=== PATIENT | female | born 1950 | race African-American/Black ===

== ENCOUNTER 2018-07-01 10:54 | Inpatient (IN) | payer MEDICARE, MEDICAID ==
[2018-07-01] VITALS (26 sets, daily range): BP systolic 80–107; BP diastolic 29–84
[~2018-07-01] VITALS: Ht 170.2 cm; Wt 83.6 kg
[2018-07-01] MEDS ORDERED: PROP80CA43 PO (11:00)
[2018-07-01] MEDS ORDERED: SODIUM CHLORIDE 0.9% 1,000 ML IV NR (11:30)
[2018-07-01] MEDS ORDERED: ASPIRIN 81MG TABLET PO NR (11:30)
[2018-07-01] MEDS ORDERED: ATROPINE SULFATE 1MG/ML VIAL IV ONE (11:45)
[2018-07-01] MEDS ORDERED: ATROPINE SULFATE 1MG/10ML SYR IV ONE (12:00)
[2018-07-01 12:12] LABS: BASOPHILS % 0.3 % (0.0-2.0); EOSINOPHILS % 1.3 % (0.0-5.0); HEMATOCRIT. 38.3 % (36.0-48.0); HEMOGLOBIN. 12.4 g/dL (12.0-16.0); LYMPHOCYTES % 19.1 % (20.0-50.0); MEAN CORPUSCULAR HEMOGLOBIN 29.5 pg (28.0-32.0); MEAN CORPUSCULAR VOLUME 90.8 fL (81.0-99.0); MEAN PLATELET VOLUME 10.4 fl (7.4-10.4); MONOCYTES % 5.9 % (2.0-8.0); NEUTROPHILS % 73.4 % (40.0-76.0); PLATELET 165 x1000/uL (130-400); RED BLOOD CELL COUNT 4.21 mill/uL (4.2-5.4); RED CELL DISTRIBUTION WIDTH 15.2 % (11.6-14.6)
[2018-07-01] MEDS ORDERED: DOPAMINE 800MG PREMIX (DOUBLE) 250 ML IV ONE (12:15)
[2018-07-01 12:18] LABS: CHLORIDE 104 mEq/L (98-107)
[2018-07-01] MEDS ORDERED: DOPAMINE 400MG/250ML PREMIX 250 ML IV ONE ×3 (12:30→18:44)
[2018-07-01] MEDS ORDERED: GLUCAGON,HUMAN RECOMBINANT 1MG/VIAL IV ONE (12:30)
[2018-07-01] MEDS ORDERED: GUAIFENESIN 200MG/10ML SUGAR FREE UDC PO PRN (14:00)
[2018-07-01] MEDS ORDERED: ACETAMINOPHEN 325MG TABLET PO PRN (14:00)
[2018-07-01] MEDS ORDERED: NA PHOS,M-B/NA PHOS,DI-BA ENEMA 118ML PR PRN (14:00)
[2018-07-01] MEDS ORDERED: DOCUSATE SODIUM 100MG CAPSULE PO PRN (14:00)
[2018-07-01] MEDS ORDERED: ONDANSETRON HCL 4MG/2ML INJ IV PRN (14:00)
[2018-07-01] MEDS ORDERED: HYDROCODONE/ACETAMINOPHEN 5/325MG TABLET PO PRN (14:00)
[2018-07-01] MEDS ORDERED: LORAZEPAM 2MG/ML CPJ IV NR (16:45)
[2018-07-01] MEDS: SODIUM CHLORIDE 0.45% 1,000 ML IV SCH (17:34)
[2018-07-01] MEDS ORDERED: ENOXAPARIN 40MG/0.4ML SYR SUBCUT SCH (18:00)
[2018-07-01 18:41] LABS: CREATINE KINASE 94 IU/L (26-192)
[2018-07-01 18:43] LABS: CREATINE KINASE MB FRACTION 9.8 ng/mL (0.5-3.6)
[2018-07-01] MEDS: DOPAMINE 400MG/250ML PREMIX 250 ML IV PRN ×2 (19:38→23:42)
[2018-07-02] VITALS (101 sets, daily range): BP systolic 67–169; BP diastolic 28–120
[2018-07-02 00:46] LABS: CREATINE KINASE 67 IU/L (26-192)
[2018-07-02 05:36] LABS: BASOPHILS % 0.2 % (0.0-2.0); EOSINOPHILS % 0.4 % (0.0-5.0); HEMATOCRIT. 39.2 % (36.0-48.0); HEMOGLOBIN. 13.2 g/dL (12.0-16.0); MEAN CORPUSCULAR HEMOGLOBIN 30.2 pg (28.0-32.0); MEAN CORPUSCULAR VOLUME 89.9 fL (81.0-99.0); MEAN PLATELET VOLUME 10.4 fl (7.4-10.4); MONOCYTES % 6.4 % (2.0-8.0); PLATELET 156 x1000/uL (130-400); RED BLOOD CELL COUNT 4.36 mill/uL (4.2-5.4)
[2018-07-02 05:40] LABS: CHLORIDE 105 mEq/L (98-107)
[2018-07-02 05:50] LABS: HDL CHOLESTEROL 49 mg/dL (40-59); LDL CHOLESTEROL 114 mg/dL (5-100); T4 FREE 0.94 ng/dL (0.76-1.46)
[2018-07-02] MEDS: DOPAMINE 400MG/250ML PREMIX 250 ML IV PRN ×2 (07:57→18:05)
[2018-07-02] MEDS: SODIUM CHLORIDE 0.45% 1,000 ML IV SCH ×2 (09:27→23:18)
[2018-07-02] MEDS: MIDODRINE HCL 2.5MG TABLET PO SCH ×2 (13:00→13:36)
[2018-07-02 13:21] LABS: CLARITY URINE CLEAR (CLEAR); COLOR URINE YELLOW (YELLOW); KETONES URINE NEGATIVE (NEGATIVE); LEUKOCYTE ESTERASE URINE NEGATIVE (NEGATIVE); NITRITE URINE NEGATIVE (NEGATIVE); OCCULT BLOOD URINE TRACE (NEGATIVE); PROTEIN URINE NEGATIVE (NEGATIVE); SPECIFIC GRAVITY URINE 1.004 (1.005-1.030); UROBILINOGEN URINE 0.2 E.U./dL (0.2-1.0)
[2018-07-02] MEDS ORDERED: ASPIRIN 81MG EC TABLET PO NR (15:00)
[2018-07-02] MEDS ORDERED: ENOXAPARIN 30MG/0.3ML SYR SUBCUT SCH (18:00)
[2018-07-02] MEDS: MIDODRINE HCL 5MG TABLET PO SCH (18:07)
[2018-07-02] MEDS: ATORVASTATIN CALCIUM 10MG TABLET PO SCH (20:20)
[2018-07-02] MEDS ORDERED: ENOXAPARIN 40MG/0.4ML SYR SUBCUT SCH (21:00)
[2018-07-02] MEDS: ZOLPIDEM TARTRATE 5MG TABLET PO PRN (23:01)
[2018-07-03] VITALS (38 sets, daily range): BP systolic 84–105; BP diastolic 49–75
[2018-07-03 05:01] LABS: BASOPHILS % 0.4 % (0.0-2.0); EOSINOPHILS % 0.8 % (0.0-5.0); HEMATOCRIT. 34.3 % (36.0-48.0); HEMOGLOBIN. 11.3 g/dL (12.0-16.0); LYMPHOCYTES % 15.7 % (20.0-50.0); MEAN CORPUSCULAR HEMOGLOBIN 29.8 pg (28.0-32.0); MEAN CORPUSCULAR VOLUME 90.2 fL (81.0-99.0); MONOCYTES % 6.8 % (2.0-8.0); NEUTROPHILS % 76.3 % (40.0-76.0); PLATELET 109 x1000/uL (130-400); RED CELL DISTRIBUTION WIDTH 15.5 % (11.6-14.6)
[2018-07-03 05:07] LABS: CHLORIDE 108 mEq/L (98-107)
[2018-07-03] MEDS: ASPIRIN 81MG EC TABLET PO SCH (08:58)
[2018-07-03] MEDS: MIDODRINE HCL 5MG TABLET PO SCH ×3 (08:58→17:20)
[2018-07-03] MEDS ORDERED: POTASSIUM CHLORIDE 20MEQ TABLET SR PO NR (09:20)
[2018-07-03] MEDS ORDERED: INFLUENZA VIRUS VACCINE(AFLURIA) 0.5ML SYR IM ONE (20:00)
[2018-07-03] MEDS: SODIUM CHLORIDE 0.45% 1,000 ML IV SCH (20:10)
[2018-07-03] MEDS: ATORVASTATIN CALCIUM 10MG TABLET PO SCH (20:29)
[2018-07-03] MEDS ORDERED: ENOXAPARIN 30MG/0.3ML SYR SUBCUT SCH (21:00)
[2018-07-03] MEDS: ZOLPIDEM TARTRATE 5MG TABLET PO PRN (23:21)
[2018-07-04] VITALS: BP 104/71
[2018-07-04 04:00] VITALS: BP 121/80
[2018-07-04 07:33] LABS: BASOPHILS % 0.3 % (0.0-2.0); EOSINOPHILS % 1.1 % (0.0-5.0); HEMATOCRIT. 32.5 % (36.0-48.0); HEMOGLOBIN. 10.9 g/dL (12.0-16.0); LYMPHOCYTES % 23.8 % (20.0-50.0); MEAN CORPUSCULAR HEMOGLOBIN 30.2 pg (28.0-32.0); MEAN CORPUSCULAR VOLUME 90.2 fL (81.0-99.0); MONOCYTES % 8.2 % (2.0-8.0); NEUTROPHILS % 66.6 % (40.0-76.0); PLATELET 89 x1000/uL (130-400); RED BLOOD CELL COUNT 3.61 mill/uL (4.2-5.4); RED CELL DISTRIBUTION WIDTH 15.2 % (11.6-14.6)
[2018-07-04 08:00] VITALS: BP 128/82
[2018-07-04] MEDS: MIDODRINE HCL 5MG TABLET PO SCH (08:29)
[2018-07-04] MEDS: ASPIRIN 81MG EC TABLET PO SCH (08:29)
[2018-07-04] MEDS: SODIUM CHLORIDE 0.45% 1,000 ML IV SCH (08:31)
[2018-07-04] MEDS ORDERED: MAGNESIUM OXIDE 400MG TABLET PO SCH (09:45)
[2018-07-04] MEDS ORDERED: POTASSIUM CHLORIDE 20MEQ TABLET SR PO NR (09:45)
[2018-07-04 12:00] VITALS: BP 137/73
[2018-07-04 12:12] VITALS: BP 137/73
== END 2018-07-04 12:59 | disposition home health service (06) | DRG 683 ==
LOC: ER 11:51 → CVICU 13:54 → EDBEDREQSVC 13:57 → EDBEDREQTM 13:57 → EDBEDREQ 13:57 → ENRESERV 14:31 → 6WST 07-03 15:30
PROVIDERS: ADMIT Hospitalist; ATTEND Hospitalist
PROC: 06HY33Z Insertion of Infusion Device into Lower Vein, Percutaneous Approach (ICD-10-PCS; principal; 2018-07-03)
PROC: B54BZZA Ultrasonography of Right Lower Extremity Veins, Guidance (ICD-10-PCS; 2018-07-03)
DX: N17.9 Acute kidney failure, unspecified (principal); I69.351 Hemiplegia and hemiparesis following cerebral infarction affecting right dominant side; J44.9 Chronic obstructive pulmonary disease, unspecified; I44.0 Atrioventricular block, first degree; G47.00 Insomnia, unspecified; I95.9 Hypotension, unspecified; E03.9 Hypothyroidism, unspecified; E83.42 Hypomagnesemia; I07.1 Rheumatic tricuspid insufficiency; I34.0 Nonrheumatic mitral (valve) insufficiency; F10.10 Alcohol abuse, uncomplicated; R00.1 Bradycardia, unspecified; I11.9 Hypertensive heart disease without heart failure; Z82.49 Family history of ischemic heart disease and other diseases of the circulatory system; Z79.899 Other long term (current) drug therapy
CPT/HCPCS: 36415; 71045; 80048; 80061; 82550; 82553; 82962; 83735; 83880; 84439; 84443; 84484; 93005; 93306; 93970; 96365; 96375; 99291; J0461; J1265; J1610; J1650; J2060; J7060

== ENCOUNTER 2020-05-03 07:57 | Inpatient (IN) | payer MEDICARE, MEDICAID ==
[~2020-05-03] VITALS: Ht 167.6 cm; Wt 69.9 kg
[~2020-05-03 07:57] MED LIST: PROP80CA59 PO
[2020-05-03 09:41] LABS: HEMATOCRIT. 32.2 % (36.0-48.0); HEMOGLOBIN. 10.8 g/dL (12.0-16.0); MEAN CORPUSCULAR HEMOGLOBIN 29.5 pg (28.0-32.0); MEAN CORPUSCULAR VOLUME 88.2 fL (81.0-99.0); MEAN PLATELET VOLUME 8.6 fl (7.4-10.4); PLATELET 191 x1000/uL (130-400); RED BLOOD CELL COUNT 3.66 mill/uL (4.2-5.4); RED CELL DISTRIBUTION WIDTH 14.9 % (11.6-14.6)
[2020-05-03 09:51] LABS: CHLORIDE 109 mEq/L (98-107); PROTHROMBIN TIME 10.5 sec (9.6-11.0)
[2020-05-03] MEDS ORDERED: POTASSIUM CHLORIDE 20MEQ TABLET SR PO ONE (10:30)
[2020-05-03 10:40] LABS: PLATELET ESTIMATE NORMAL
[2020-05-03 11:00] LABS: CLARITY URINE CLEAR (CLEAR); COLOR URINE YELLOW (YELLOW); KETONES URINE TRACE (NEGATIVE); LEUKOCYTE ESTERASE URINE TRACE (NEGATIVE); NITRITE URINE NEGATIVE (NEGATIVE); OCCULT BLOOD URINE 1+ (NEGATIVE); PH URINE 5.5 (4.5-8.0); PROTEIN URINE 2+ (NEGATIVE); SPECIFIC GRAVITY URINE 1.015 (1.005-1.030); UROBILINOGEN URINE 0.2 E.U./dL (0.2-1.0)
[2020-05-03] MEDS ORDERED: ACETAMINOPHEN 325MG TABLET PO ONE (12:15)
[2020-05-03] MEDS ORDERED: CEFTRIAXONE 1 G PREMIX 50 ML IV SCH (12:45)
[2020-05-03] MEDS ORDERED: POTASSIUM CHLORIDE 20MEQ TABLET SR PO NR (12:45)
[2020-05-03] MEDS ORDERED: NITROGLYCERIN 0.4MG TABLET SL SL PRN (12:45)
[2020-05-03] MEDS ORDERED: ENOXAPARIN 40MG/0.4ML SYR SUBCUT SCH (12:45)
[2020-05-03] MEDS ORDERED: IPRATROPIUM/ALBUTEROL 0.5-3(2.5)MG/3ML NEB NEB PRN (12:45)
[2020-05-03] MEDS ORDERED: ZOLPIDEM TARTRATE 5MG TABLET PO PRN (12:45)
[2020-05-03] MEDS ORDERED: DOCUSATE SODIUM 100MG CAPSULE PO PRN (12:45)
[2020-05-03] MEDS ORDERED: ONDANSETRON HCL 4MG/2ML INJ IV PRN (12:45)
[2020-05-03] MEDS ORDERED: MAGNESIUM/ALUMINUM HYDROXIDE/SIMETHICONE 30ML UDC PO PRN (12:45)
[2020-05-03] MEDS ORDERED: GUAIFENESIN 200MG/10ML SUGAR FREE UDC PO PRN (12:45)
[2020-05-03] MEDS ORDERED: LEVOFLOXACIN 500MG PREMIX 100 ML IV SCH (12:45)
[2020-05-03] MEDS ORDERED: KCL 20MEQ/100ML PREMIX 100 ML IV NR (12:45)
[2020-05-03 13:07] LABS: PHOSPHORUS 3.5 mg/dL (2.5-4.9)
[2020-05-03 13:11] LABS: T4 FREE 1.05 ng/dL (0.76-1.46)
[2020-05-03] MEDS ORDERED: CEFTRIAXONE 1 G PREMIX 50 ML IV NR (13:15)
[2020-05-03] MEDS ORDERED: LEVOFLOXACIN 500MG PREMIX 100 ML IV NR (13:15)
[2020-05-03] MEDS: SODIUM CHLORIDE 0.9% 1,000 ML IV SCH ×2 (13:41→14:10)
[2020-05-03] MEDS: ENOXAPARIN 30MG/0.3ML SYR SUBCUT SCH (13:44)
[2020-05-03 15:00] VITALS: BP 93/78
[2020-05-03 16:00] VITALS: BP 97/71
[2020-05-03] MEDS ORDERED: PNEUMOCOCCAL 23-VAL P-SAC VAC 0.5 ML IM ONE (16:45)
[2020-05-03] MEDS ORDERED: INFLUENZA VACCINE 05/PF 0.5 ML VIAL IM ONE (16:45)
[2020-05-03] MEDS: ACETAMINOPHEN 325MG TABLET PO PRN (17:30)
[2020-05-03] MEDS ORDERED: ZOLP5TAB2 PO (18:50)
[2020-05-03] MEDS ORDERED: ALLO300T2 MT (18:50)
[2020-05-03 20:00] VITALS: BP 112/74
[2020-05-03] MEDS: FAMOTIDINE 20MG TABLET PO SCH (20:01)
[2020-05-03] MEDS: ZOLPIDEM TARTRATE 5MG TABLET PO PRN (20:01)
[2020-05-03] MEDS: ASCORBIC ACID 500 MG TABLET PO SCH (20:01)
[2020-05-03 21:44] LABS: CREATINE KINASE 60 IU/L (26-192)
[2020-05-03 21:45] LABS: CREATINE KINASE MB FRACTION 4.1 ng/mL (0.5-3.6)
[2020-05-04] VITALS: BP 124/63
[2020-05-04 04:00] VITALS: BP 115/54
[2020-05-04] MEDS: SODIUM CHLORIDE 0.9% 1,000 ML IV SCH (04:18)
[2020-05-04] MEDS: ACETAMINOPHEN 325MG TABLET PO PRN ×3 (05:38→18:55)
[2020-05-04 06:52] LABS: BASOPHILS % 0.3 % (0.0-2.0); EOSINOPHILS % 1.2 % (0.0-5.0); HEMATOCRIT. 26.8 % (36.0-48.0); HEMOGLOBIN. 9.2 g/dL (12.0-16.0); LYMPHOCYTES % 9.6 % (20.0-50.0); MEAN CORPUSCULAR HEMOGLOBIN 30.2 pg (28.0-32.0); MEAN CORPUSCULAR VOLUME 88.2 fL (81.0-99.0); MEAN PLATELET VOLUME 8.7 fl (7.4-10.4); MONOCYTES % 4.9 % (2.0-8.0); PLATELET 167 x1000/uL (130-400); RED BLOOD CELL COUNT 3.04 mill/uL (4.2-5.4); RED CELL DISTRIBUTION WIDTH 14.3 % (11.6-14.6)
[2020-05-04 06:55] LABS: CHLORIDE 114 mEq/L (98-107)
[2020-05-04 07:01] LABS: PHOSPHORUS 3.6 mg/dL (2.5-4.9)
[2020-05-04 08:00] VITALS: BP 133/80
[2020-05-04] MEDS ORDERED: POTASSIUM CHLORIDE 20MEQ TABLET SR PO SCH (09:15)
[2020-05-04] MEDS: ZINC SULFATE 220 MG ( 50 ) CAPSULE PO SCH (09:31)
[2020-05-04] MEDS: ASCORBIC ACID 500 MG TABLET PO SCH ×2 (09:31→20:16)
[2020-05-04] MEDS ORDERED: POTASSIUM CHLORIDE INJ 40 MEQ in DEXT 5% WATER 250 ML IV SCH (10:30)
[2020-05-04 12:00] VITALS: BP 131/88
[2020-05-04 12:56] LABS: *AMPHETAMINES SCREEN URINE NEGATIVE (NEGATIVE); *BARBITURATES SCREEN URINE NEGATIVE (NEGATIVE)
[2020-05-04 12:57] LABS: *BENZODIAZEPINES SCREEN URINE NEGATIVE (NEGATIVE); *COCAINE SCREEN URINE NEGATIVE (NEGATIVE); METHADONE URINE SCREEN NEGATIVE (NEGATIVE); OPIATES URINE SCREEN NEGATIVE (NEGATIVE); PHENCYCLIDINE URINE SCREEN NEGATIVE (NEGATIVE)
[2020-05-04 12:58] LABS: CANNABINOID URINE SCREEN NEGATIVE (NEGATIVE)
[2020-05-04] MEDS: LEVOFLOXACIN 250MG PREMIX 50 ML IV SCH (13:00)
[2020-05-04] MEDS: ENOXAPARIN 30MG/0.3ML SYR SUBCUT SCH (13:30)
[2020-05-04] MEDS: CEFTRIAXONE 1,000 MG in DEXTROSE 5% WATER 50 ML IV SCH (14:48)
[2020-05-04 16:00] VITALS: BP 130/91
[2020-05-04 20:00] VITALS: BP 149/84
[2020-05-04] MEDS: ZOLPIDEM TARTRATE 5MG TABLET PO PRN (20:16)
[2020-05-04] MEDS: FAMOTIDINE 20MG TABLET PO SCH (20:16)
[2020-05-05] VITALS: BP 157/84
[2020-05-05] MEDS ORDERED: TRAZ-251 PO (03:36)
[2020-05-05] MEDS ORDERED: BUSP15TA3 PO (03:36)
[2020-05-05] MEDS ORDERED: PARO-41 PO (03:36)
[2020-05-05] MEDS ORDERED: LORA2TAB95 PO (03:36)
[2020-05-05 04:00] VITALS: BP 152/74
[2020-05-05] MEDS: SODIUM CHLORIDE 0.9% 1,000 ML IV SCH (04:08)
[2020-05-05 08:00] VITALS: BP 160/80
[2020-05-05] MEDS: ZINC SULFATE 220 MG ( 50 ) CAPSULE PO SCH (08:28)
[2020-05-05] MEDS: ACETAMINOPHEN 325MG TABLET PO PRN ×2 (08:28→17:54)
[2020-05-05] MEDS: ASCORBIC ACID 500 MG TABLET PO SCH ×2 (08:28→20:06)
[2020-05-05] MEDS: CLONIDINE 0.1MG TABLET PO PRN (08:28)
[2020-05-05 12:00] VITALS: BP 132/72
[2020-05-05] MEDS: CEFTRIAXONE 1,000 MG in DEXTROSE 5% WATER 50 ML IV SCH (12:05)
[2020-05-05] MEDS: LEVOFLOXACIN 250MG PREMIX 50 ML IV SCH (13:43)
[2020-05-05] MEDS: ENOXAPARIN 30MG/0.3ML SYR SUBCUT SCH (13:45)
[2020-05-05 16:05] VITALS: BP 120/77
[2020-05-05 16:14] LABS: BASOPHILS % 0.3 % (0.0-2.0); EOSINOPHILS % 1.1 % (0.0-5.0); HEMATOCRIT. 26.2 % (36.0-48.0); LYMPHOCYTES % 10.8 % (20.0-50.0); MEAN CORPUSCULAR VOLUME 87.9 fL (81.0-99.0); MEAN PLATELET VOLUME 8.8 fl (7.4-10.4); MONOCYTES % 7.5 % (2.0-8.0); NEUTROPHILS % 80.3 % (40.0-76.0); PLATELET 163 x1000/uL (130-400); RED BLOOD CELL COUNT 2.98 mill/uL (4.2-5.4); RED CELL DISTRIBUTION WIDTH 14.6 % (11.6-14.6)
[2020-05-05 16:24] LABS: CHLORIDE 113 mEq/L (98-107)
[2020-05-05] MEDS ORDERED: POTASSIUM CHLORIDE 20MEQ TABLET SR PO NR (16:45)
[2020-05-05 20:00] VITALS: BP 135/83
[2020-05-05] MEDS: FAMOTIDINE 20MG TABLET PO SCH (20:07)
[2020-05-05] MEDS: ZOLPIDEM TARTRATE 5MG TABLET PO PRN (20:07)
[2020-05-06] VITALS: BP 143/98
[2020-05-06] MEDS: SODIUM CHLORIDE 0.9% 1,000 ML IV SCH ×2 (00:28→11:16)
[2020-05-06 04:00] VITALS: BP 144/90
[2020-05-06] MEDS: ACETAMINOPHEN 325MG TABLET PO PRN ×2 (07:00→14:17)
[2020-05-06 07:27] LABS: BASOPHILS % 0.3 % (0.0-2.0); EOSINOPHILS % 0.8 % (0.0-5.0); HEMATOCRIT. 24.6 % (36.0-48.0); HEMOGLOBIN. 8.4 g/dL (12.0-16.0); LYMPHOCYTES % 9.9 % (20.0-50.0); MEAN CORPUSCULAR HEMOGLOBIN 29.8 pg (28.0-32.0); MEAN CORPUSCULAR VOLUME 87.6 fL (81.0-99.0); PLATELET 140 x1000/uL (130-400)
[2020-05-06 08:00] VITALS: BP 142/69
[2020-05-06 08:23] LABS: CHLORIDE 116 mEq/L (98-107)
[2020-05-06 08:31] LABS: PHOSPHORUS 3.2 mg/dL (2.5-4.9)
[2020-05-06] MEDS: ZINC SULFATE 220 MG ( 50 ) CAPSULE PO SCH (09:34)
[2020-05-06] MEDS: ASCORBIC ACID 500 MG TABLET PO SCH ×2 (09:34→20:15)
[2020-05-06] MEDS: CEFTRIAXONE 1,000 MG in DEXTROSE 5% WATER 50 ML IV SCH (11:18)
[2020-05-06 12:00] VITALS: BP 162/92
[2020-05-06] MEDS: LEVOFLOXACIN 250MG PREMIX 50 ML IV SCH (14:15)
[2020-05-06] MEDS: ENOXAPARIN 30MG/0.3ML SYR SUBCUT SCH (14:16)
[2020-05-06 16:00] VITALS: BP 150/90
[2020-05-06 20:00] VITALS: BP 146/90
[2020-05-06] MEDS: FAMOTIDINE 20MG TABLET PO SCH (20:15)
[2020-05-06] MEDS: ZOLPIDEM TARTRATE 5MG TABLET PO PRN (20:15)
[2020-05-07] VITALS: BP 179/92
[2020-05-07] MEDS: CLONIDINE 0.1MG TABLET PO PRN ×2 (01:06→12:41)
[2020-05-07 04:00] VITALS: BP 151/96
[2020-05-07] MEDS: SODIUM CHLORIDE 0.9% 1,000 ML IV SCH (04:56)
[2020-05-07 08:00] VITALS: BP 169/116
[2020-05-07] MEDS: AMLODIPINE 10MG TABLET PO SCH (09:48)
[2020-05-07] MEDS: ZINC SULFATE 220 MG ( 50 ) CAPSULE PO SCH (09:48)
[2020-05-07] MEDS: ASCORBIC ACID 500 MG TABLET PO SCH ×2 (09:48→20:36)
[2020-05-07 11:33] LABS: CHLORIDE 112 mEq/L (98-107)
[2020-05-07 11:35] LABS: BASOPHILS % 0.5 % (0.0-2.0); EOSINOPHILS % 0.9 % (0.0-5.0); HEMOGLOBIN. 8.1 g/dL (12.0-16.0); LYMPHOCYTES % 10.8 % (20.0-50.0); MEAN CORPUSCULAR VOLUME 88.6 fL (81.0-99.0); MONOCYTES % 6.8 % (2.0-8.0); PLATELET 124 x1000/uL (130-400); RED BLOOD CELL COUNT 2.71 mill/uL (4.2-5.4); RED CELL DISTRIBUTION WIDTH 15.2 % (11.6-14.6)
[2020-05-07 12:00] VITALS: BP 188/109
[2020-05-07] MEDS: CEFTRIAXONE 1,000 MG in DEXTROSE 5% WATER 50 ML IV SCH (12:40)
[2020-05-07] MEDS: ENOXAPARIN 30MG/0.3ML SYR SUBCUT SCH (12:45)
[2020-05-07 16:00] VITALS: BP 149/117
[2020-05-07] MEDS ORDERED: POTASSIUM CHLORIDE 20MEQ/PACKET PO NR (20:00)
[2020-05-07] MEDS: ZOLPIDEM TARTRATE 5MG TABLET PO PRN (20:36)
[2020-05-07] MEDS: FAMOTIDINE 20MG TABLET PO SCH (20:36)
[2020-05-07] MEDS ORDERED: KCL 20MEQ/100ML PREMIX 100 ML IV NR (21:00)
[2020-05-07 21:05] VITALS: BP 148/85
[2020-05-07] MEDS: ACETAMINOPHEN 325MG TABLET PO PRN (23:03)
[2020-05-08 00:14] VITALS: BP 133/82
[2020-05-08 04:56] VITALS: BP 140/75
[2020-05-08 06:12] LABS: BASOPHILS % 0.3 % (0.0-2.0); EOSINOPHILS % 1.3 % (0.0-5.0); HEMATOCRIT. 27.8 % (36.0-48.0); HEMOGLOBIN. 9.4 g/dL (12.0-16.0); LYMPHOCYTES % 17.2 % (20.0-50.0); MEAN CORPUSCULAR HEMOGLOBIN 29.8 pg (28.0-32.0); MEAN CORPUSCULAR VOLUME 88.1 fL (81.0-99.0); NEUTROPHILS % 73.2 % (40.0-76.0); PLATELET 138 x1000/uL (130-400); RED BLOOD CELL COUNT 3.15 mill/uL (4.2-5.4); RED CELL DISTRIBUTION WIDTH 15.1 % (11.6-14.6)
[2020-05-08 06:20] LABS: CHLORIDE 114 mEq/L (98-107)
[2020-05-08 06:32] LABS: PHOSPHORUS 3.9 mg/dL (2.5-4.9)
[2020-05-08 08:00] VITALS: BP 142/88
[2020-05-08] MEDS: ZINC SULFATE 220 MG ( 50 ) CAPSULE PO SCH (08:58)
[2020-05-08] MEDS: AMLODIPINE 10MG TABLET PO SCH (08:58)
[2020-05-08] MEDS: ASCORBIC ACID 500 MG TABLET PO SCH (08:58)
[2020-05-08] MEDS: SODIUM CHLORIDE 0.9% 1,000 ML IV SCH ×2 (08:59→12:45)
[2020-05-08] MEDS ORDERED: MAGNESIUM 1 G PREMIX 100 ML IV SCH (09:00)
[2020-05-08 11:56] VITALS: BP 149/93
[2020-05-08] MEDS: ENOXAPARIN 30MG/0.3ML SYR SUBCUT SCH (12:50)
[2020-05-08 13:11] VITALS: BP 149/93
== END 2020-05-08 15:20 | DRG 871 ==
LOC: ER 07:57 → 5WST 12:15 → EDBEDREQ 12:17 → EDBEDREQSVC 12:17 → SUPCPDRO 12:40 → ENRESERV 13:08
PROVIDERS: ADMIT Internal Medicine; ATTEND Internal Medicine
DX: A41.9 Sepsis, unspecified organism (principal); N17.0 Acute kidney failure with tubular necrosis; N39.0 Urinary tract infection, site not specified; E44.0 Moderate protein-calorie malnutrition; E83.52 Hypercalcemia; E87.6 Hypokalemia; I10 Essential (primary) hypertension; D63.8 Anemia in other chronic diseases classified elsewhere; Z20.828 Contact with and (suspected) exposure to other viral communicable diseases; J44.9 Chronic obstructive pulmonary disease, unspecified; Z86.73 Personal history of transient ischemic attack (TIA), and cerebral infarction without residual deficits; Z79.899 Other long term (current) drug therapy; R53.81 Other malaise; Z68.24 Body mass index [BMI] 24.0-24.9, adult
CPT/HCPCS: 36415; 70551; 71045; 72141; 72146; 72148; 80053; 80061; 80305; 81003; 82550; 82553; 82607; 82746; 83036; 83540; 83550; 83605; 83735; 84100; 84145; 84439; 84443; 84484; 85025; 87426; 90686; 90732; 93970; 97161; 97166; 99285; C1893; J0696; J1650; J1956; J3475; J3480; J7060

== ENCOUNTER 2022-03-05 02:06 | Inpatient (IN) | payer MEDICARE, MEDICAID ==
[~2022-03-05] VITALS: Ht 167.6 cm; Wt 88.9 kg
[~2022-03-05 02:06] MED LIST changes: +ALLO300T2 MT; +BUSP15TA3 PO; +LORA2TAB95 PO; +PARO-41 PO; +TRAZ-251 PO; +ZOLP5TAB2 PO
[2022-03-05] MEDS ORDERED: ALBUTEROL (0.083%) 2.5MG/3ML NEB HHN STA (03:23)
[2022-03-05] MEDS ORDERED: IPRATROPIUM BROMIDE (0.02%) 0.5MG/2.5ML NEB HHN STA (03:23)
[2022-03-05] MEDS ORDERED: PREDNISONE 20MG TABLET PO STA (03:23)
[2022-03-05 04:22] LABS: BASOPHILS % 0.5 % (0.0-2.0); EOSINOPHILS % 2.8 % (0.0-5.0); HEMATOCRIT. 31.5 % (36.0-48.0); HEMOGLOBIN. 10.1 g/dL (12.0-16.0); LYMPHOCYTES % 14.3 % (20.0-50.0); MEAN CORPUSCULAR HEMOGLOBIN 28.7 pg (28.0-32.0); MEAN CORPUSCULAR VOLUME 89.8 fL (81.0-99.0); MEAN PLATELET VOLUME 8.8 fl (7.4-10.4); MONOCYTES % 6.1 % (2.0-8.0); NEUTROPHILS % 76.3 % (40.0-76.0); PLATELET 206 x1000/uL (130-400); RED BLOOD CELL COUNT 3.51 mill/uL (4.2-5.4)
[2022-03-05 04:24] LABS: CHLORIDE 105 mEq/L (98-107)
[2022-03-05] MEDS ORDERED: SODIUM CHLORIDE 0.9% 1,000 ML IV ONE (05:15)
[2022-03-05] MEDS ORDERED: ASPIRIN 325MG EC TABLET PO NR (05:15)
[2022-03-05] MEDS ORDERED: IPRATROPIUM/ALBUTEROL 0.5-3(2.5)MG/3ML NEB NEB PRN (07:30)
[2022-03-05] MEDS ORDERED: ONDANSETRON HCL 4MG/2ML INJ IV PRN (07:30)
[2022-03-05] MEDS ORDERED: MAGNESIUM/ALUMINUM HYDROXIDE/SIMETHICONE 30ML UDC PO PRN (07:30)
[2022-03-05] MEDS ORDERED: NITROGLYCERIN 0.4MG TABLET SL SL PRN (07:30)
[2022-03-05] MEDS ORDERED: TRAMADOL 50MG TABLET PO PRN (07:30)
[2022-03-05] MEDS ORDERED: ACETAMINOPHEN 325MG TABLET PO PRN (07:30)
[2022-03-05] MEDS ORDERED: DOCUSATE SODIUM 100MG CAPSULE PO PRN (07:30)
[2022-03-05 08:19] LABS: BG BASE EXCESS -3.3 mmol/L (-2.0-2.0); BG CARBOXYHEMOGLOBIN 0.3 % (0.5-1.5); BG DEOXYHEMOGLOBIN 2.9 % (0.0-5.0); BG FRACTION INSPIRED OXYGEN 21; BG METHEMOGLOBIN 1.3 % (0.0-1.5); BG OXYGEN SATURATION 97.1 % (92.0-98.5); BG OXYHEMOGLOBIN 95.5 % (94.0-97.0); BG PCO2 34.3 mmHg (35.0-45.0); BG PH 7.404 (7.350-7.450); BG PO2 100.8 mmHg (75.0-100.0); BG SAMPLE SITE RIGHT RADIAL; BG TOTAL HEMOGLOBIN 9.4 g/dL (12.0-18.0); BG VENT MODE ROOM AIR
[2022-03-05] MEDS ORDERED: LEVOFLOXACIN 500MG PREMIX 100 ML IV NR (09:00)
[2022-03-05 11:00] VITALS: BP 122/72
[2022-03-05 11:58] VITALS: BP 122/72
[2022-03-05] MEDS: ACETAMINOPHEN 325MG TABLET PO PRN (12:35)
[2022-03-05] MEDS ORDERED: FERR236T3 MT (14:04)
[2022-03-05] MEDS: GUAIFENESIN/DM 600MG/30MG ER TAB 12HR PO SCH ×2 (15:00→22:38)
[2022-03-05] MEDS: FAMOTIDINE 20MG TABLET PO SCH (15:00)
[2022-03-05] MEDS: METHYLPREDNISOLONE SOD SUCC 125 MG/2 ML VIAL IV SCH ×2 (15:00→22:38)
[2022-03-05] MEDS: ENOXAPARIN 30MG/0.3ML SYR SUBCUT SCH (15:01)
[2022-03-05] MEDS: CLONIDINE 0.1MG TABLET PO PRN (15:59)
[2022-03-05 16:04] VITALS: BP 153/99
[2022-03-05 17:38] LABS: CREATINE KINASE 40 IU/L (26-192); CREATINE KINASE MB FRACTION < 1.0 ng/mL (0.5-3.6)
[2022-03-05 20:00] VITALS: BP 132/83
[2022-03-05] MEDS ORDERED: ZOLPIDEM TARTRATE 5MG TABLET PO PRN (20:00)
[2022-03-05] MEDS: IPRATROPIUM/ALBUTEROL 0.5-3(2.5)MG/3ML NEB HHN SCH (20:00)
[2022-03-05] MEDS: ZOLPIDEM TARTRATE 5MG TABLET PO PRN (22:38)
[2022-03-05] MEDS ORDERED: NALOXONE HCL 0.4MG/ML VIAL IV PRN (23:00)
[2022-03-06] VITALS: BP 124/70
[2022-03-06 00:04] LABS: CREATINE KINASE MB FRACTION 1.1 ng/mL (0.5-3.6)
[2022-03-06 04:00] VITALS: BP 122/75
[2022-03-06] MEDS: IPRATROPIUM/ALBUTEROL 0.5-3(2.5)MG/3ML NEB HHN SCH ×6 (04:00→20:00)
[2022-03-06] MEDS: METHYLPREDNISOLONE SOD SUCC 125 MG/2 ML VIAL IV SCH ×3 (07:09→20:57)
[2022-03-06 07:34] LABS: HEMATOCRIT. 25.6 % (36.0-48.0); HEMOGLOBIN. 8.2 g/dL (12.0-16.0); MEAN CORPUSCULAR VOLUME 90.4 fL (81.0-99.0); MEAN PLATELET VOLUME 8.9 fl (7.4-10.4); PLATELET 147 x1000/uL (130-400); RED BLOOD CELL COUNT 2.83 mill/uL (4.2-5.4); RED CELL DISTRIBUTION WIDTH 17.2 % (11.6-14.6)
[2022-03-06 07:39] LABS: CHLORIDE 102 mEq/L (98-107)
[2022-03-06 07:58] LABS: PHOSPHORUS 3.4 mg/dL (2.5-4.9)
[2022-03-06 08:00] VITALS: BP 139/76
[2022-03-06] MEDS: ENOXAPARIN 30MG/0.3ML SYR SUBCUT SCH (09:00)
[2022-03-06] MEDS: GUAIFENESIN/DM 600MG/30MG ER TAB 12HR PO SCH ×2 (09:00→20:57)
[2022-03-06] MEDS: FAMOTIDINE 20MG TABLET PO SCH (09:00)
[2022-03-06] MEDS ORDERED: LEVOFLOXACIN 250MG PREMIX 50 ML IV SCH (11:00)
[2022-03-06 12:00] VITALS: BP 148/95
[2022-03-06] MEDS: LEVOFLOXACIN 250MG PREMIX 50 ML IV SCH (12:18)
[2022-03-06] MEDS: ACETAMINOPHEN 325MG TABLET PO PRN (13:02)
[2022-03-06] MEDS: CLONIDINE 0.1MG TABLET PO PRN (13:02)
[2022-03-06 16:00] VITALS: BP 137/86
[2022-03-06 17:27] LABS: PLATELET ESTIMATE NORMAL
[2022-03-06 20:00] VITALS: BP 146/92
[2022-03-06] MEDS: ZOLPIDEM TARTRATE 5MG TABLET PO PRN (20:57)
[2022-03-07] VITALS (7 sets, daily range): BP systolic 137–154; BP diastolic 60–87
[2022-03-07] MEDS: IPRATROPIUM/ALBUTEROL 0.5-3(2.5)MG/3ML NEB HHN SCH ×6 (04:00→20:00)
[2022-03-07] MEDS: METHYLPREDNISOLONE SOD SUCC 125 MG/2 ML VIAL IV SCH ×3 (06:44→22:31)
[2022-03-07 07:34] LABS: HEMATOCRIT 25.5 % (36.0-48.0); HEMOGLOBIN 8.2 g/dL (12.0-16.0); MEAN CORPUSCULAR HEMOGLOBIN 28.9 pg (28.0-32.0); MEAN CORPUSCULAR VOLUME 90.3 fL (81.0-99.0); PLATELET 141 x1000/uL (130-400); RED BLOOD CELL COUNT 2.83 mill/uL (4.2-5.4); RED CELL DISTRIBUTION WIDTH 16.8 % (11.6-14.6)
[2022-03-07] MEDS: GUAIFENESIN/DM 600MG/30MG ER TAB 12HR PO SCH ×2 (09:00→22:38)
[2022-03-07] MEDS: CLONIDINE 0.1MG TABLET PO PRN (11:14)
[2022-03-07] MEDS: GUAIFENESIN 200MG/10ML SUGAR FREE UDC PO PRN ×3 (11:14→22:31)
[2022-03-07] MEDS: FAMOTIDINE 20MG TABLET PO SCH (11:15)
[2022-03-07] MEDS: ENOXAPARIN 30MG/0.3ML SYR SUBCUT SCH (11:21)
[2022-03-07] MEDS: LEVOFLOXACIN 250MG PREMIX 50 ML IV SCH (11:28)
[2022-03-07] MEDS: ACETAMINOPHEN 325MG TABLET PO PRN (17:51)
[2022-03-07] MEDS: ZOLPIDEM TARTRATE 5MG TABLET PO PRN (22:38)
[2022-03-08] VITALS: BP 138/64
[2022-03-08 04:00] VITALS: BP 140/68
[2022-03-08] MEDS: IPRATROPIUM/ALBUTEROL 0.5-3(2.5)MG/3ML NEB HHN SCH ×6 (04:00→21:20)
[2022-03-08] MEDS: METHYLPREDNISOLONE SOD SUCC 125 MG/2 ML VIAL IV SCH ×3 (05:45→22:41)
[2022-03-08 08:00] VITALS: BP 160/85
[2022-03-08] MEDS: FAMOTIDINE 20MG TABLET PO SCH (08:21)
[2022-03-08] MEDS: CLONIDINE 0.1MG TABLET PO PRN ×2 (08:21→08:24)
[2022-03-08] MEDS: GUAIFENESIN/DM 600MG/30MG ER TAB 12HR PO SCH ×2 (08:22→22:41)
[2022-03-08] MEDS: ENOXAPARIN 30MG/0.3ML SYR SUBCUT SCH (08:23)
[2022-03-08 10:00] LABS: HEMATOCRIT 26.1 % (36.0-48.0); HEMOGLOBIN 8.3 g/dL (12.0-16.0)
[2022-03-08 12:00] VITALS: BP 138/87
[2022-03-08] MEDS: ACETAMINOPHEN 325MG TABLET PO PRN (13:00)
[2022-03-08] MEDS: LEVOFLOXACIN 250MG PREMIX 50 ML IV SCH (13:00)
[2022-03-08 16:00] VITALS: BP 142/88
[2022-03-08 20:00] VITALS: BP 128/82
[2022-03-08] MEDS: ZOLPIDEM TARTRATE 5MG TABLET PO PRN (22:41)
[2022-03-09] VITALS: BP 122/81
[2022-03-09] MEDS: IPRATROPIUM/ALBUTEROL 0.5-3(2.5)MG/3ML NEB HHN SCH ×5 (00:40→18:08)
[2022-03-09 04:00] VITALS: BP 131/82
[2022-03-09] MEDS: METHYLPREDNISOLONE SOD SUCC 125 MG/2 ML VIAL IV SCH ×2 (06:49→12:41)
[2022-03-09 08:00] VITALS: BP 136/84
[2022-03-09 08:56] LABS: HEMATOCRIT 25.6 % (36.0-48.0); HEMOGLOBIN 8.1 g/dL (12.0-16.0); MEAN CORPUSCULAR HEMOGLOBIN 28.5 pg (28.0-32.0); MEAN CORPUSCULAR VOLUME 90.2 fL (81.0-99.0); PLATELET 127 x1000/uL (130-400); RED BLOOD CELL COUNT 2.83 mill/uL (4.2-5.4); RED CELL DISTRIBUTION WIDTH 17.6 % (11.6-14.6)
[2022-03-09 09:05] LABS: CHLORIDE 102 mEq/L (98-107)
[2022-03-09] MEDS ORDERED: P20 MT (09:26)
[2022-03-09] MEDS ORDERED: ALBU6.7H9 INH (09:26)
[2022-03-09] MEDS: ENOXAPARIN 30MG/0.3ML SYR SUBCUT SCH (10:06)
[2022-03-09] MEDS: GUAIFENESIN/DM 600MG/30MG ER TAB 12HR PO SCH (10:07)
[2022-03-09] MEDS: FAMOTIDINE 20MG TABLET PO SCH (10:07)
[2022-03-09] MEDS ORDERED: LEVOFLOXACIN 250MG TABLET PO SCH (11:00)
[2022-03-09 12:00] VITALS: BP 141/80
[2022-03-09 15:05] VITALS: BP 136/84
== END 2022-03-09 19:50 | disposition home or self-care (01) | DRG 291 ==
LOC: ER 02:06 → 6WST 05:20 → ENRESERV 08:04
PROVIDERS: ADMIT Internal Medicine; ATTEND Internal Medicine
DX: I13.0 Hypertensive heart and chronic kidney disease with heart failure and stage 1 through stage 4 chronic kidney disease, or unspecified chronic kidney disease (principal); I50.31 Acute diastolic (congestive) heart failure; N17.0 Acute kidney failure with tubular necrosis; J44.1 Chronic obstructive pulmonary disease with (acute) exacerbation; D63.8 Anemia in other chronic diseases classified elsewhere; F32.A Depression, unspecified; N18.9 Chronic kidney disease, unspecified; E11.22 Type 2 diabetes mellitus with diabetic chronic kidney disease; Z96.649 Presence of unspecified artificial hip joint; Z86.73 Personal history of transient ischemic attack (TIA), and cerebral infarction without residual deficits; Z79.899 Other long term (current) drug therapy
CPT/HCPCS: 36415; 36600; 71045; 76770; 80048; 80053; 82375; 82550; 82553; 82607; 82746; 82805; 83036; 83540; 83550; 83735; 83880; 84100; 84443; 84484; 85014; 85018; 85025; 85027; 93306; 93970; 94640; 97162; 97166; 99285; J1650; J1956; J2930; J7512